=== PATIENT | female | born 1970 | race Caucasian/White ===

== ENCOUNTER → 2018-05-17 14:36 | Outpatient (CLI) | payer OTHER, SELFPAY ==
[2018-05-17 16:01] LABS: Hematocrit 40.8 % (36-46); Hemoglobin 13.9 g/dL (12.0-16.0); Mean Corpuscular Volume 93.9 fL (80-100); Platelet Count 328 X10^3/uL (150-400); Red Blood Cell Count 4.34 X10^6/uL (4.0-5.2); Red Cell Distribution Width 14.3 % (11.6-14.8); White Blood Cell Count 7.8 X10^3/uL (4.5-11.0)
[2018-05-17 16:11] LABS: Alanine Aminotransferase 42 IU/L (9-52); Albumin 4.3 g/dL (3.5-5.0); Albumin Globulin Ratio 1.4 (1.0-2.8); Alkaline Phosphatase 63 U/L (38-126); Aspartate Aminotransferase 40 IU/L (14-36); BUN Creatinine Ratio 8.3 (6-22); Bilirubin Total 0.4 mg/dL (0.2-1.3); Blood Urea Nitrogen 5 mg/dL (7-17); Carbon Dioxide 25 mmol/L (22-32); Chloride 102 mmol/L (98-107); Estimated Glomerular Filt Rate > 60.0 mL/min (>60); Glucose 85 mg/dL (70-100); HEMOLYSIS < 15 (0-50); Potassium 4.1 mmol/L (3.4-5.1); Sodium 137 mmol/L (137-145); Total Protein 7.3 g/dL (6.3-8.2)
[2018-05-17 17:38] LABS: HIV 1 and 2 Antibody NEGATIVE (NEGATIVE); Hep C Virus Ab w/Reflex Quant NEGATIVE s/c (NEGATIVE)
[2018-05-17 17:44] LABS: Neutrophils Absolute Manual 4368 /uL (3000-5900); Total Cells Counted 100
[2018-05-17 17:45] LABS: RBC Morphology Normal Morphology
[2018-05-19 14:41] LABS: RPR Screen Nonreactive (Nonreactive)
== END ==
LOC: LAB 14:37
PROVIDERS: Family Provider Family Medicine
DX: F32.9 Major depressive disorder, single episode, unspecified (principal); R53.83 Other fatigue; R63.5 Abnormal weight gain; Z20.2 Contact with and (suspected) exposure to infections with a predominantly sexual mode of transmission
CPT/HCPCS: 36415; 80053; 85025; 86592; 86703; 86803

== ENCOUNTER → 2018-06-22 13:04 | Outpatient (CLI) | payer OTHER, SELFPAY ==
--- NOTE | 2018-06-22 13:05 | DI.MRI.S_ITS ---
PROCEDURE: MR KNEE LT WO CON INDICATIONS: persistent knee pain TECHNIQUE: Noncontrast sagittal PD fast spin echo and T2 fast spin echo with fat saturation, sagittal 3-D FLASH with fat saturation; coronal T1 spin echo and PD fast spin echo with fat saturation, and axial PD fast spin echo with fat saturation through the knee. COMPARISON: None. FINDINGS: Image quality: Excellent. Menisci: Medial extrusion of the medial meniscus is present. There is moderately displaced radial tearing of the posterior horn medial meniscus at the meniscal root ligament insertion site. Linear high signal intensity obliquely traverses the posterior horn medial meniscus, demonstrating inferior articular surface extension. Lateral meniscus is intact. Cruciate ligaments: The anterior and posterior cruciate ligaments appear intact. Medial structures: The medial collateral ligament appears intact. Visualized portions of the pes anserinus tendons appear normal. No abnormal bursal fluid. Lateral structures: The lateral collateral ligament, long and short heads of the biceps femoris tendon appear intact. The popliteus tendon appears normal. Iliotibial band appears normal. Anterior structures: The quadriceps and patellar tendons appear intact. Patellar alignment is normal. No femoral trochlear dysplasia or ventral trochlear prominence. No edema in the infrapatellar fat pad. Bones and cartilage: No bone marrow contusions or fractures. Mild tricompartmental periarticular osteophyte formation. Moderate to high-grade cartilage loss overlies the medial and lateral femoral trochlea inferiorly. Joint space: There is a moderate knee joint effusion and a trace Campos's cyst. There is a small synovial protrusion along the popliteus, containing multiple intra-articular loose bodies. Normal appearing synovial plicae are incidentally noted. IMPRESSION: 1. Tricompartmental osteoarthritis with associated articular cartilage loss. 2. Medial meniscal extrusion and tearing. 3. Knee joint effusion and intra-articular loose bodies. Dictated by: Skyler Grant M.D. on 06/22/2018 at 15:22 Approved by: Skyler Grant M.D. on 06/22/2018 at 15:26
== END ==
LOC: MRI 13:05
PROVIDERS: PCP Family Medicine; Visit Provider Family Medicine
DX: M25.562 Pain in left knee (principal); S83.242A Other tear of medial meniscus, current injury, left knee, initial encounter; M17.12 Unilateral primary osteoarthritis, left knee; M25.462 Effusion, left knee
CPT/HCPCS: 73721

== ENCOUNTER → 2018-06-25 09:31 | Outpatient (CLI) | payer OTHER, SELFPAY ==
[2018-06-25 10:40] LABS: Hematocrit 40.3 % (36-46); Hemoglobin 13.9 g/dL (12.0-16.0); Mean Corpuscular HGB Conc 34.5 % (30-36); Mean Corpuscular Hemoglobin 31.7 PG (26-34); Mean Corpuscular Volume 91.9 fL (80-100); Platelet Count 315 X10^3/uL (150-400); Red Blood Cell Count 4.38 X10^6/uL (4.0-5.2); Red Cell Distribution Width 14.7 % (11.6-14.8); White Blood Cell Count 5.9 X10^3/uL (4.5-11.0)
[2018-06-25 10:59] LABS: Cholesterol 212 mg/dL (140-199); HDL Cholesterol 81 mg/dL (40-60); LDL Cholesterol Calculated 114 mg/dL (<100); Triglycerides 84 mg/dL (35-150)
[2018-06-25 11:28] LABS: Neutrophils Absolute Manual 3894 /uL (3000-5900); Total Cells Counted 100
[2018-06-25 11:29] LABS: Anisocytosis 1+
[2018-06-25 11:30] LABS: TSH w/ Reflex to FT4 1.04 uIU/mL (0.47-4.68)
== END ==
LOC: LAB 09:32
PROVIDERS: PCP Family Medicine
DX: R63.5 Abnormal weight gain (principal); R88.8 Abnormal findings in other body fluids and substances
CPT/HCPCS: 36415; 80061; 84443; 85025

== ENCOUNTER → 2018-07-09 12:42 | Outpatient (CLI) | payer OTHER, SELFPAY ==
--- NOTE | 2018-07-09 12:43 | DI.MG.S_ITS ---
BILATERAL DIGITAL SCREENING MAMMOGRAM 3D/2D WITH CAD: 07/09/2018 CLINICAL: Routine screening. Comparison is made to exams dated: 09/23/2016 mammogram, 08/10/2014 mammogram, and 10/29/2012 mammogram - [facility]. The tissue of both breasts is heterogeneously dense. This may lower the sensitivity of mammography. Current study was also evaluated with a Computer Aided Detection (CAD) system. No significant masses, calcifications, or other findings are seen in either breast. There has been no significant interval change. IMPRESSION: NEGATIVE There is no mammographic evidence of malignancy. A 1 year screening mammogram is recommended. This exam was interpreted at Station ID: [id number]. NOTE: For mammograms, a report in lay terms will be sent to the patient. Approximately 15% of breast malignancies will not be visualized mammographically. In the management of a palpable breast mass, a negative mammogram must not discourage biopsy of a clinically suspicious lesion. Electronically Signed By: Peewee agosto/quinn:07/09/2018 19:38:41 letter sent: Normal Exam ACR BI-RADS Category 1: Negative 3341F
== END ==
PROVIDERS: PCP Family Medicine; Visit Provider Family Medicine
DX: Z12.31 Encounter for screening mammogram for malignant neoplasm of breast (principal)
CPT/HCPCS: 77063; 77067

== ENCOUNTER → 2019-11-24 08:51 | Outpatient (CLI) | payer OTHER, MEDICAID, SELFPAY ==
[2019-11-24 10:37] LABS: Hematocrit 39.4 % (36-46); Hemoglobin 13.7 g/dL (12.0-16.0); Mean Corpuscular HGB Conc 34.8 % (30-36); Mean Corpuscular Hemoglobin 31.6 PG (26-34); Mean Corpuscular Volume 90.9 fL (80-100); Platelet Count 300 X10^3/uL (150-400); Red Blood Cell Count 4.33 X10^6/uL (4.0-5.2); Red Cell Distribution Width 13.5 % (11.6-14.8); White Blood Cell Count 6.5 X10^3/uL (4.5-11.0)
[2019-11-24 10:50] LABS: Alanine Aminotransferase 17 IU/L (<35); Albumin 4.5 g/dL (3.5-5.0); Albumin Globulin Ratio 1.5 (1.0-2.8); Alkaline Phosphatase 70 U/L (38-126); Aspartate Aminotransferase 24 IU/L (14-36); BUN Creatinine Ratio 19.4 (6-22); Bilirubin Total 0.6 mg/dL (0.2-1.3); Blood Urea Nitrogen 13 mg/dL (7-17); Calcium 9.6 mg/dL (8.4-10.2); Carbon Dioxide 25 mmol/L (22-32); Chloride 102 mmol/L (98-107); Cholesterol 234 mg/dL (140-199); Estimated Glomerular Filt Rate > 60.0 mL/min (>60); Globulin 3.1 g/dL (1.7-4.1); Glucose 96 mg/dL (70-100); HDL Cholesterol 94 mg/dL (40-60); HEMOLYSIS < 15 (0-50); LDL Cholesterol Calculated 114 mg/dL (<100); Potassium 4.4 mmol/L (3.4-5.1); Sodium 137 mmol/L (137-145); Total Protein 7.6 g/dL (6.3-8.2); Triglycerides 131 mg/dL (35-150)
[2019-11-24 11:03] LABS: Neutrophils Absolute Manual 3705 /uL (3000-5900); RBC Morphology Normal Morphology; Total Cells Counted 100
[2019-11-24 11:17] LABS: Thyroid Stimulating Hormone 1.74 uIU/mL (0.47-4.68)
== END ==
PROVIDERS: PCP Family Medicine; Referring Provider Family Medicine; Visit Provider Family Medicine
DX: N95.1 Menopausal and female climacteric states (principal); R63.5 Abnormal weight gain; Z13.0 Encounter for screening for diseases of the blood and blood-forming organs and certain disorders involving the immune mechanism; Z13.1 Encounter for screening for diabetes mellitus; Z13.220 Encounter for screening for lipoid disorders
CPT/HCPCS: 36415; 80053; 80061; 83001; 83002; 84443; 85025

== ENCOUNTER → 2019-12-01 12:05 | Outpatient (CLI) | payer OTHER, MEDICAID, SELFPAY ==
--- NOTE | 2019-12-01 12:17 | DI.MG.S_ITS ---
Patient Name: APARNA REED date: 1970 Sex: F Attending Physician: Jessie Indications: Date: 12/01/2019 12:14 At the request of: RONALD CUNHA Procedure: MM screening mammo BI BILATERAL DIGITAL SCREENING MAMMOGRAM 3D/2D WITH CAD: 12/01/2019 CLINICAL: Routine screening. Comparison is made to exams dated: 07/09/2018 mammogram, 07/06/2017 mammogram, 09/23/2016 mammogram, and 08/10/2014 mammogram - [facility]. There are scattered fibroglandular elements in both breasts. Current study was also evaluated with a Computer Aided Detection (CAD) system. No significant masses, calcifications, or other findings are seen in either breast. There has been no significant interval change. IMPRESSION: NEGATIVE There is no mammographic evidence of malignancy. A 1 year screening mammogram is recommended. This exam was interpreted at Station ID: [id number]. NOTE: For mammograms, a report in lay terms will be sent to the patient. Approximately 15% of breast malignancies will not be visualized mammographically. In the management of a palpable breast mass, a negative mammogram must not discourage biopsy of a clinically suspicious lesion. Electronically Signed By: Raymundo howell/quinn:12/01/2019 12:27:23 letter sent: Normal Exam ACR BI-RADS Category 1: Negative 3341F
== END ==
PROVIDERS: PCP Family Medicine; Referring Provider Family Medicine; Visit Provider Family Medicine
DX: Z12.31 Encounter for screening mammogram for malignant neoplasm of breast (principal)
CPT/HCPCS: 77063; 77067

== ENCOUNTER → 2019-12-23 10:44 | Outpatient (CLI) | payer OTHER, MEDICAID, SELFPAY ==
[2019-12-25 18:19] LABS: COVID19 Sendout Not Detected (Not Detect)
== END ==
PROVIDERS: PCP Family Medicine; Visit Provider Nurse Practitioner
DX: Z11.59 Encounter for screening for other viral diseases (principal)
CPT/HCPCS: 87635

== ENCOUNTER → 2019-12-26 13:03 | Outpatient (CLI) | payer OTHER, MEDICAID, SELFPAY ==
--- NOTE | 2019-12-26 14:42 | PM.TREADMILL ---
Cardiac Stress Test Report Referral & Results Date Patient Seen: 12/26/19 Requesting provider: Gillian Roman Indication: chest pressure Rest ECG: unremarkable Procedure Note: Today following both written and verbal informed consent, the patient was exercised according to a standard David protocol. The patient exercised for a total of 9 minutes 2 second achieving a maximum heart rate of s 162. Patient's maximum systolic blood pressure was 220. This was an estimated 10.1 MET's. there are no ST-T segment changes Normal heart rate and blood pressure response Functional aerobic impairment rates about -30% on the sedentary scale or 130% of average Single PVC an exercise Impression: no ischemic changes. Excellent exercise capacity Please note: Actual ECG tracings can be found in the PACS system.
== END ==
PROVIDERS: PCP Family Medicine; Referring Provider Family Medicine; Visit Provider Family Medicine
DX: R07.89 Other chest pain (principal)
CPT/HCPCS: 93016; 93017; 93018

== ENCOUNTER → 2020-01-18 10:31 | Outpatient (CLI) | payer OTHER, MEDICAID, SELFPAY ==
--- NOTE | 2020-01-18 10:32 | DI.US.S_ITS ---
PROCEDURE: US THYROID INDICATIONS: ENLARGED THYROID TECHNIQUE: Real-time scanning was performed of the thyroid gland, with image documentation. COMPARISON: None. FINDINGS: Right: Thyroid lobe measures 6.1 x 2.0 x 2.2 cm, and is homogeneous in echotexture. Left: Thyroid lobe measures 5.9 x 1.9 x 1.9 cm, and is homogenous in echotexture. Isthmus: 3 mm thick. Nodule number: 1 Location: Left lower pole Size: 0.9 x 0.5 x 0.7 cm. Composition: Predominately cystic Echogenicity: Hypoechoic Shape: wider than tall. Margins: Smooth Echogenic foci: None Total points: 2 ACR TI-RADS category: Not suspicious Nodule number: 2 Location: Left midpole Size: 1.1 x 0.4 x 0.6 cm. Composition: Predominately cystic Echogenicity: Hypoechoic Shape: wider than tall. Margins: Smooth Echogenic foci: None Total points: 2 ACR TI-RADS category: Not suspicious Nodule number: 3 Location: Left upper pole Size: 0.9 x 0.3 x 0.7 cm. Composition: Predominately cystic Echogenicity: Hypoechoic Shape: wider than tall. Margins: Smooth Echogenic foci: None Total points: 2 ACR TI-RADS category: Not suspicious Nodule number: 4 Location: Right inferior pole Size: 0.7 x 0.4 x 0.5 cm. Composition: Solid Echogenicity: Hypoechoic Shape: wider than tall. Margins: Irregular Echogenic foci: None Total points: 4 ACR TI-RADS category: Moderately suspicious IMPRESSION: Multiple thyroid nodules as detailed above, no further follow-up or FNA necessary per TI-RADS consensus criteria below. ACR TI-RADS definitions and recommendations: TI-RADS 1 (benign): 0 points. FNA not needed. TI-RADS 2 (not suspicious): 2 points. FNA not needed. TI-RADS 3 (mildly suspicious): 3 points. * FNA if 2.5 cm or larger, follow up if 1.5 cm or larger (at 1, 3, and 5 years). TI-RADS 4 (moderately suspicious): 4-6 points. * FNA if 1.5 cm or larger, follow up if 1 cm or larger (at 1, 2, 3, and 5 years). TI-RADS 5 (highly suspicious): 7 points or more. * FNA if 1 cm or larger, follow up if 0.5 cm or larger (every year for 5 years). Dictated by: Kennedy Del Castillo M.D. on 01/18/2020 at 11:32 Approved by: Kennedy Del Castillo M.D. on 01/18/2020 at 11:35
== END ==
PROVIDERS: PCP Family Medicine; Referring Provider Family Medicine; Visit Provider Family Medicine
DX: E04.2 Nontoxic multinodular goiter (principal)
CPT/HCPCS: 76536

== ENCOUNTER → 2021-12-25 12:13 | Outpatient (CLI) | payer OTHER, MEDICAID, SELFPAY | PROVIDERS: PCP Family Medicine; Visit Provider Nurse Practitioner Family | DX: R30.0 Dysuria (principal) | CPT/HCPCS: 87086 ==

== ENCOUNTER 2021-12-25 12:32 | Emergency (ER) | payer OTHER, MEDICAID, SELFPAY ==
[2021-12-25 13:06] VITALS: BP 161/94; PULSE 67; RESP 18; TEMP 36.4; O2SAT 95
[2021-12-25 13:40] LABS: Add Manual Diff / Slide Review NO; Basophils Absolute Auto 0 /uL (0-100); Basophils Percent Auto 0.6 % (0-2); Eosinophils Absolute Auto 100 /uL (0-450); Eosinophils Percent Auto 2.1 % (2-4); Hematocrit 40.1 % (36-46); Hemoglobin 13.8 g/dL (12.0-16.0); Lymphocytes Absolute Auto 1700 /uL (1100-4500); Lymphocytes Percent Auto 25.9 % (25-40); Mean Corpuscular HGB Conc 34.4 % (30-36); Mean Corpuscular Hemoglobin 30.5 PG (26-34); Mean Corpuscular Volume 88.7 fL (80-100); Monocytes Absolute Auto 400 /uL (0-900); Monocytes Percent Auto 6.3 % (3-14); Neutrophils Absolute Auto 4300 /uL (1500-7000); Neutrophils Percent Auto 65.1 % (50-75); Platelet Count 284 X10^3/uL (150-400); Red Blood Cell Count 4.52 X10^6/uL (4.0-5.2); Red Cell Distribution Width 15.5 % (11.6-14.8); White Blood Cell Count 6.5 X10^3/uL (4.5-11.0)
[2021-12-25 13:42] LABS: Alanine Aminotransferase 56 IU/L (<35); Albumin 4.6 g/dL (3.5-5.0); Albumin Globulin Ratio 1.2 (1.0-2.8); Alkaline Phosphatase 89 U/L (38-126); Aspartate Aminotransferase 58 IU/L (14-36); BUN Creatinine Ratio 14.1 (6-22); Bilirubin Total 0.7 mg/dL (0.2-1.3); Blood Urea Nitrogen 9 mg/dL (7-17); Calcium 9.4 mg/dL (8.4-10.2); Carbon Dioxide 24 mmol/L (22-32); Chloride 101 mmol/L (98-107); Estimated Glomerular Filt Rate > 60 mL/min (>60); Globulin 3.8 g/dL (1.7-4.1); Glucose 91 mg/dL (70-100); HEMOLYSIS < 15 (0-50); Lipase 64 U/L (23-300); Potassium 4.4 mmol/L (3.4-5.1); Sodium 136 mmol/L (137-145); Total Protein 8.4 g/dL (6.3-8.2)
--- NOTE | 2021-12-25 14:07 | DI.CT.S_ITS ---
PROCEDURE: CT KIDNEY URETER BLADDER (KUB) INDICATIONS: rt flank pain/hematuria TECHNIQUE: Axial sections were acquired from the lung bases to the pubic symphysis. Coronal and sagittal reformats were performed. For radiation dose reduction, the following was used: automated exposure control, adjustment of mA and/or kV according to patient size. COMPARISON: None. FINDINGS: Image quality: Excellent. Lung bases: Unremarkable. Heart: No significant findings. URINARY: Right Kidney: No stones or hydronephrosis. Right Ureter: No hydroureter. Left Kidney: No stones or hydronephrosis. Simple parapelvic cysts are noted. Left Ureter: No hydroureter. Bladder: Normal wall thickness. No stones. ABDOMEN: Liver: Liver is enlarged measuring 20.9 cm with diffuse steatosis. Gallbladder: Unremarkable. Biliary ducts: Unremarkable. Pancreas: Unremarkable. Spleen: Unremarkable. Adrenal Glands: Unremarkable. Stomach and Bowel: Stomach, small bowel loops, and colon are unremarkable. Peritoneum: No abnormal intraperitoneal fluid. No free air. Ventral Wall: No hernia. Abdominal Nodes: No enlarged retroperitoneal or mesenteric lymph nodes. Vessels: Aorta and inferior vena cava are normal in size. PELVIS: Pelvic Organs: Unremarkable. Pelvic Nodes: Unremarkable. Miscellaneous: No inguinal hernias are seen. Bones: Unremarkable. IMPRESSION: No renal, ureteral or bladder calculi. Dictated by: Karoline Barton M.D. on 12/25/2021 at 15:01 Approved by: Karoline Barton M.D. on 12/25/2021 at 15:31
[2021-12-25 14:34] VITALS: BP 193/108; PULSE 82; RESP 24; O2SAT 97
--- NOTE | 2021-12-25 17:21 | ED_ITS ---
HPI - Abdominal Pain <SADIQ Sellers - Last Filed: 12/25/21 20:14> General Chief Complaint: Abdominal Pain Stated Complaint: Severe sharp pain lower RT ABD Time Seen by Provider: 12/25/21 14:06 Source: patient Mode of arrival: Ambulatory History of Present Illness HPI narrative: This is a 51-year-old female who presents to the emergency department complaining of right-sided thoracic pain which she was woken up with last night, endorses feeling bloated and having right-sided flank pain. She denies any f jem but endorses mild nausea. She denies any dysuria, urinary frequency or urgency, denies any chest pain, shortness of breath, difficulty breathing or weakness. States she is had a partial hysterectomy without oophorectomy and this is her only abdominal surgery in the past. She denies any heartburn or epigastric pain. States that she is gained approximately 100 lb over the last 2 years and this has been due to live stress and grief. Related Data Previous Rx's Medication Instructions Recorded epinephrine 0.3 mg/0.3 mL 0.3 mg (0.3 mL) IM ONCE #2 ea 02/25/21 injection, auto-injector sertraline 50 mg tablet 50 mg PO DAILY #90 tabs 08/22/21 methocarbamol 500 mg tablet 250 - 500 mg PO BEDTIME muscle 12/25/21 pain #10 tabs Allergies Allergy/AdvReac Type Severity Reaction Status Date / Time venom-honey bee Allergy Severe ANAPHYLAXIS Verified 12/25/21 12:05 [BEE VENOM (HONEY BEE)] Review of Systems <SADIQ Sellers - Last Filed: 12/25/21 20:14> Review of Systems Narrative: Review of systems is negative for acute abnormalities unless otherwise noted in HPI Patient History <SADIQ Sellers - Last Filed: 12/25/21 20:14> Medical History Thyroid nodule Surgical History History of salpingectomy (~02/13/17) Status post dilation and curettage (12/30/16) Status post laparoscopic supracervical hysterectomy (02/13/17) Social History Smoking Status: Never smoker Smoking Status: Never smoker Exam <SADIQ Sellers - Last Filed: 12/25/21 20:14> Narrative Exam Narrative: Reviewed vitals signs and nursing notes. General: cooperative, comfortable, in no acute distress, well groomed HEENT: symmetrical facial expressions, moist mucous membranes, EOMI Cardiovascular: regular rate and rhythm, no peripheral edema, warm extremities Respiratory: normal effort, able to speak in complete sentences, without wheezing, stridor, or abnormal breath sounds. No retractions or tachypnea. GI: abdomen soft, nontender to palpation, nondistended, without masses, rebound tenderness or exquisite tenderness with exam. MSK: moves all extremities, neurovascularly intact, no weakness, normal tone, patient had tenderness to palpation of the midthoracic region over the right- sided musculature, this was reproducible, presume likely muscle spasm, no CVA tenderness bilaterally Skin: brisk capillary refill, without pallor or erythema Neuro: normal speech and cognition, A&O x3, ambulatory, clear speech Psych: mental status is grossly normal, congruent mood, normal affect, pleasant and cooperative Initial Vital Signs Initial Vital Signs: Vital Signs Temperature 97.5 F L 12/25/21 13:06 Pulse Rate 67 12/25/21 13:06 Respiratory Rate 18 12/25/21 13:06 Blood Pressure 161/94 H 12/25/21 13:06 Pulse Oximetry 95 12/25/21 13:06 Oxygen Delivery Method 12/25/21 13:06 <Jhony Isabel DO - Last Filed: 12/26/21 14:46> Initial Vital Signs Initial Vital Signs: Vital Signs Temperature 97.5 F L 12/25/21 13:06 Pulse Rate 67 12/25/21 13:06 Respiratory Rate 18 12/25/21 13:06 Blood Pressure 161/94 H 12/25/21 13:06 Pulse Oximetry 95 12/25/21 13:06 Oxygen Delivery Method 12/25/21 13:06 Course <SADIQ Sellers - Last Filed: 12/25/21 20:14> Orders Ordered: Discontinued Medications Lactated Ringer's (Lactated Ringers) 1,000 mls @ 1,000 mls/hr IV BOLUS ONE Stop: 12/25/21 18:22 Last Infusion: 12/25/21 19:21 Dose: 0 mls/hr Documented By: Admin: 12/25/21 18:29 Dose: 1,000 mls/hr Documented By: ALAN Ketorolac Tromethamine (Ketorolac 30 Mg/Ml Vial) 15 mg IV NOW ONE Stop: 12/25/21 17:24 Last Admin: 12/25/21 18:29 Dose: 15 mg Documented By: ALAN Ondansetron HCl (Ondansetron 4 Mg Odt) 4 mg SL NOW ONE Stop: 12/25/21 18:12 Last Admin: 12/25/21 18:29 Dose: 4 mg Documented By: ALAN Vital Signs Vital signs: Vital Signs - 8 hr 12/25/21 13:06 12/25/21 14:34 12/25/21 18:43 Temperature 97.5 F L Pulse Rate 67 82 78 Respiratory Rate 18 24 16 Blood Pressure 161/94 H 193/108 H 145/93 H Pulse Oximetry 95 97 98 Oxygen Delivery Method Room Air Room Air Room Air <Jhony Isabel, - Last Filed: 12/26/21 14:46> Orders Ordered: Discontinued Medications Lactated Ringer's (Lactated Ringers) 1,000 mls @ 1,000 mls/hr IV BOLUS ONE Stop: 12/25/21 18:22 Last Infusion: 12/25/21 19:21 Dose: 0 mls/hr Documented By: Admin: 12/25/21 18:29 Dose: 1,000 mls/hr Documented By: ALAN Ketorolac Tromethamine (Ketorolac 30 Mg/Ml Vial) 15 mg IV NOW ONE Stop: 12/25/21 17:24 Last Admin: 12/25/21 18:29 Dose: 15 mg Documented By: ALAN Ondansetron HCl (Ondansetron 4 Mg Odt) 4 mg SL NOW ONE Stop: 12/25/21 18:12 Last Admin: 12/25/21 18:29 Dose: 4 mg Documented By: ALAN Vital Signs Vital signs: Vital Signs - 8 hr 12/25/21 13:06 12/25/21 14:34 12/25/21 18:43 Temperature 97.5 F L Pulse Rate 67 82 78 Respiratory Rate 18 24 16 Blood Pressure 161/94 H 193/108 H 145/93 H Pulse Oximetry 95 97 98 Oxygen Delivery Method Room Air Room Air Room Air MDM - Abdominal Pain <ANTONY SellersP - Last Filed: 12/25/21 20:14> Lab Data Result diagrams: 12/25/21 13:17 12/25/21 13:17 Labs: Lab Results 12/25/21 12/25/21 12/25/21 Range/Units 13:17 13:17 13:17 WBC 6.5 (4.5-11.0) X10^3/uL RBC 4.52 (4.0-5.2) X10^6/uL Hgb 13.8 (12.0-16.0) g/dL Hct 40.1 (36-46) % MCV 88.7 (80-100) fL MCH 30.5 (26-34) PG MCHC 34.4 (30-36) % RDW 15.5 H (11.6-14.8) % Plt Count 284 (150-400) X10^3/uL Neut % (Auto) 65.1 (50-75) % Lymph % (Auto) 25.9 (25-40) % [place] % (Auto) 6.3 (3-14) % Eos % (Auto) 2.1 (2-4) % Baso % (Auto) 0.6 (0-2) % Neut # (Auto) 4300 (3060-3646) /uL Lymph # (Auto) 1700 (0836-9963) /uL [place] # (Auto) 400 (0-900) /uL Eos # (Auto) 100 (0-450) /uL Baso # (Auto) 0 (0-100) /uL Sodium 136 L (137-145) mmol/L Potassium 4.4 (3.4-5.1) mmol/L Chloride 101 (98-107) mmol/L Carbon Dioxide 24 (22-32) mmol/L BUN 9 (7-17) mg/dL Creatinine 0.64 (0.52-1.04) mg/dL Estimated GFR > 60 (>60) mL/min BUN/Creatinine Ratio 14.1 (6-22) Glucose 91 (70-100) mg/dL Calcium 9.4 (8.4-10.2) mg/dL Total Bilirubin 0.7 (0.2-1.3) mg/dL AST 58 H (14-36) IU/L ALT 56 H (<35) IU/L Alkaline Phosphatase 89 (38-126) U/L Total Creatine Kinase (30-135) U/L CK-MB (CK-2) CK-MB (CK-2) Rel Index Troponin I (0.01-0.034) ng/mL C-Reactive Protein (<1.0) mg/dL Total Protein 8.4 H (6.3-8.2) g/dL Albumin 4.6 (3.5-5.0) g/dL Globulin 3.8 (1.7-4.1) g/dL Albumin/Globulin Ratio 1.2 (1.0-2.8) Lipase 64 (23-300) U/L TSH 1.10 (0.47-4.68) uIU/mL 12/25/21 Range/Units 13:17 WBC (4.5-11.0) X10^3/uL RBC (4.0-5.2) X10^6/uL Hgb (12.0-16.0) g/dL Hct (36-46) % MCV (80-100) fL MCH (26-34) PG MCHC (30-36) % RDW (11.6-14.8) % Plt Count (150-400) X10^3/uL Neut % (Auto) (50-75) % Lymph % (Auto) (25-40) % [place] % (Auto) (3-14) % Eos % (Auto) (2-4) % Baso % (Auto) (0-2) % Neut # (Auto) (1872-9105) /uL Lymph # (Auto) (0310-7733) /uL [place] # (Auto) (0-900) /uL Eos # (Auto) (0-450) /uL Baso # (Auto) (0-100) /uL Sodium (137-145) mmol/L Potassium (3.4-5.1) mmol/L Chloride (98-107) mmol/L Carbon Dioxide (22-32) mmol/L BUN (7-17) mg/dL Creatinine (0.52-1.04) mg/dL Estimated GFR (>60) mL/min BUN/Creatinine Ratio (6-22) Glucose (70-100) mg/dL Calcium (8.4-10.2) mg/dL Total Bilirubin (0.2-1.3) mg/dL AST (14-36) IU/L ALT (<35) IU/L Alkaline Phosphatase (38-126) U/L Total Creatine Kinase 43 (30-135) U/L CK-MB (CK-2) TNP CK-MB (CK-2) Rel Index TNP Troponin I < 0.012 (0.01-0.034) ng/mL C-Reactive Protein 1.7 H (<1.0) mg/dL Total Protein (6.3-8.2) g/dL Albumin (3.5-5.0) g/dL Globulin (1.7-4.1) g/dL Albumin/Globulin Ratio (1.0-2.8) Lipase (23-300) U/L TSH (0.47-4.68) uIU/mL Imaging Data CT scan - abdomen/pelvis: Radiologist's Impression: PROCEDURE:? CT KIDNEY URETER BLADDER (KUB) ? INDICATIONS:? rt flank pain/hematuria ? TECHNIQUE:? Axial sections were acquired from the lung bases to the pubic symphysis.? Coronal and sagittal reformats were performed.? For radiation dose reduction, the following was used: ?automated exposure control, adjustment of mA and/or kV according to patient size.? ? COMPARISON:? None. ? FINDINGS:? Image quality:? Excellent.? ? Lung bases:? Unremarkable.? ? Heart:? No significant findings. ? URINARY: Right Kidney: ? No stones or hydronephrosis.? Right Ureter:? No hydroureter.? ? Left Kidney: ? No stones or hydronephrosis.? Simple parapelvic cysts are noted. Left Ureter:? No hydroureter.? ? Bladder:? Normal wall thickness. No stones. ? ? ? ABDOMEN: Liver:? Liver is enlarged measuring 20.9 cm with diffuse steatosis. Gallbladder:? Unremarkable.? ? Biliary ducts:? Unremarkable.? ? Pancreas:? Unremarkable.? ? Spleen:? Unremarkable.? ? Adrenal Glands:? Unremarkable.? ? ? Stomach and Bowel:? Stomach, small bowel loops, and colon are unremarkable.? Peritoneum:? No abnormal intraperitoneal fluid.? No free air.? ? Ventral Wall: ? No hernia.? Abdominal Nodes:? No enlarged retroperitoneal or mesenteric lymph nodes.? Vessels:? Aorta and inferior vena cava are normal in size.? ? PELVIS: Pelvic Organs:? Unremarkable.? ? Pelvic Nodes: Unremarkable. Miscellaneous: No inguinal hernias are seen. ? ? ? Bones:? Unremarkable. ? IMPRESSION:? ? No renal, ureteral or bladder calculi. ? ? ? Dictated by: Karoline Barton M.D. on 12/25/2021 at 15:01 ? ? Approved by: Karoline Barton M.D. on 12/25/2021 at 15:31 ? US - abdomen: Radiologist's Impression: PROCEDURE:? US ABDOMEN LIMITED ? INDICATIONS:? rt abd pain ? TECHNIQUE:? Real-time scanning was performed of the abdominal and retroperitoneal organs, with image documentation.? ? COMPARISON:? None. ? FINDINGS:? ? Liver:? The liver is enlarged and demonstrates increased echogenicity.? No solid masses are identified.? Increased echogenicity prevents complete penetration and visua lization of the liver parenchyma. ? Gallbladder:? The gallbladder is contracted. ? Biliary ducts:? Intrahepatic bile ducts are non-dilated.? Extrahepatic bile duct caliber measures 3.1 mm.? Normal is 6-7 mm or less in diameter, or 10 mm or less post-cholecystectomy.? ? Pancreas:? Not well visualized ? ? IMPRESSION:? 1. Enlarged echogenic liver consistent with hepatic steatosis. 2. No cholelithiasis identified.? The gallbladder is contracted.? Dictated by: Damaso Peña M.D. on 12/25/2021 at 18:15 ? ? Approved by: Damaso Peña M.D. on 12/25/2021 at 18:17 ? MDM Narrative Medical decision making narrative: This is a 51-year-old female presents to the emergency department with right- sided upper thoracic pain which she states came on last night and was sharp in nature. She states that she is had pain like this in the past but not this bad. She endorses that she is gained about 100 lb over the last year or 2 and this is not planned but has stress and grief in her life over the last couple of years. Overall her lab work is grossly unremarkable, she has mild elevation of her AST and ALT at 58 and 56 compared to 24 in quarantine since her last visit in 2019, there is no leukocytosis or anemia, no elevation to her alkaline phosphatase, total bilirubin, or other enzymes. She was found to have hematuria without your nitrates or wbc's, has right-sided CVA tenderness but a CT KUB does not show any obstructive uropathy, nephrolithiasis or other abnormality, gallbladder was unremarkable and liver is enlarged measuring 20.9 cm with diffuse steatosis. Abdomen ultrasound shows enlarged echogenic liver consistent with hepatic steatosis and no cholelithiasis identified, the gallbladder is contracted. Patient was found to have hematuria and hepatic steatosis without any other abnormal findings today. Discussion of results with the patient and encouraged her to follow-up with urology if her hematuria is persistent or if she has any worsening of her symptoms and a consultation to Dr. Canales was placed. I presume that her back pain is likely a muscle spasm but it could be related to gallbladder pain although she did not have any cholelithiasis or cholecystitis today it sounds like her pain occurred last night and may have been referred to her back. I encouraged her to eat a low-fat diet and start with clear liquids, follow up with her primary about her elevated transaminases and hepatic steatosis, she will return to the emergency department for any worsening of this. Patient is appropriate and amenable to discharge home. Vital signs are stable on repeat examination is unremarkable. Patient has been informed of results. Patient has been given strict return to ER precautions for any new or worsening symptoms. No peritoneal signs on abdominal exam. Patient remains p.o. tolerant. Serial abdominal exam without increase in abdominal pain. Given history and exam, low suspicion for acute abdominal process, such as acute cholecystitis, pancreatitis, perforated viscus, atypical appendicitis, colitis, diverticulitis or torsion. Extensive conversation about ER return precautions and need for close follow-up. Patient understands to follow up closely with outpatient providers as instructed. Patient understands plan and agrees to discharge home. All questions and concerns answered at this time. <Jhony Isabel, DO - Last Filed: 12/26/21 14:46> Lab Data Labs: Lab Results 12/25/21 12/25/21 12/25/21 Range/Units 13:17 13:17 13:17 WBC 6.5 (4.5-11.0) X10^3/uL RBC 4.52 (4.0-5.2) X10^6/uL Hgb 13.8 (12.0-16.0) g/dL Hct 40.1 (36-46) % MCV 88.7 (80-100) fL MCH 30.5 (26-34) PG MCHC 34.4 (30-36) % RDW 15.5 H (11.6-14.8) % Plt Count 284 (150-400) X10^3/uL Neut % (Auto) 65.1 (50-75) % Lymph % (Auto) 25.9 (25-40) % [place] % (Auto) 6.3 (3-14) % Eos % (Auto) 2.1 (2-4) % Baso % (Auto) 0.6 (0-2) % Neut # (Auto) 4300 (7219-3089) /uL Lymph # (Auto) 1700 (0422-3456) /uL [place] # (Auto) 400 (0-900) /uL Eos # (Auto) 100 (0-450) /uL Baso # (Auto) 0 (0-100) /uL Sodium 136 L (137-145) mmol/L Potassium 4.4 (3.4-5.1) mmol/L Chloride 101 (98-107) mmol/L Carbon Dioxide 24 (22-32) mmol/L BUN 9 (7-17) mg/dL Creatinine 0.64 (0.52-1.04) mg/dL Estimated GFR > 60 (>60) mL/min BUN/Creatinine Ratio 14.1 (6-22) Glucose 91 (70-100) mg/dL Calcium 9.4 (8.4-10.2) mg/dL Total Bilirubin 0.7 (0.2-1.3) mg/dL AST 58 H (14-36) IU/L ALT 56 H (<35) IU/L Alkaline Phosphatase 89 (38-126) U/L Total Creatine Kinase (30-135) U/L CK-MB (CK-2) CK-MB (CK-2) Rel Index Troponin I (0.01-0.034) ng/mL C-Reactive Protein (<1.0) mg/dL Total Protein 8.4 H (6.3-8.2) g/dL Albumin 4.6 (3.5-5.0) g/dL Globulin 3.8 (1.7-4.1) g/dL Albumin/Globulin Ratio 1.2 (1.0-2.8) Lipase 64 (23-300) U/L TSH 1.10 (0.47-4.68) uIU/mL 12/25/21 Range/Units 13:17 WBC (4.5-11.0) X10^3/uL RBC (4.0-5.2) X10^6/uL Hgb (12.0-16.0) g/dL Hct (36-46) % MCV (80-100) fL MCH (26-34) PG MCHC (30-36) % RDW (11.6-14.8) % Plt Count (150-400) X10^3/uL Neut % (Auto) (50-75) % Lymph % (Auto) (25-40) % [place] % (Auto) (3-14) % Eos % (Auto) (2-4) % Baso % (Auto) (0-2) % Neut # (Auto) (0887-1380) /uL Lymph # (Auto) (2406-4516) /uL [place] # (Auto) (0-900) /uL Eos # (Auto) (0-450) /uL Baso # (Auto) (0-100) /uL Sodium (137-145) mmol/L Potassium (3.4-5.1) mmol/L Chloride (98-107) mmol/L Carbon Dioxide (22-32) mmol/L BUN (7-17) mg/dL Creatinine (0.52-1.04) mg/dL Estimated GFR (>60) mL/min BUN/Creatinine Ratio (6-22) Glucose (70-100) mg/dL Calcium (8.4-10.2) mg/dL Total Bilirubin (0.2-1.3) mg/dL AST (14-36) IU/L ALT (<35) IU/L Alkaline Phosphatase (38-126) U/L Total Creatine Kinase 43 (30-135) U/L CK-MB (CK-2) TNP CK-MB (CK-2) Rel Index TNP Troponin I < 0.012 (0.01-0.034) ng/mL C-Reactive Protein 1.7 H (<1.0) mg/dL Total Protein (6.3-8.2) g/dL Albumin (3.5-5.0) g/dL Globulin (1.7-4.1) g/dL Albumin/Globulin Ratio (1.0-2.8) Lipase (23-300) U/L TSH (0.47-4.68) uIU/mL Discharge Plan Departure Patient Disposition: Home Clinical Impression: Hepatic steatosis, Gallbladder pain Hematuria Qualifiers: Hematuria type: unspecified type Qualified Code(s): R31.9 - Hematuria, unspecified Instructions: Eating a Diet Low in Saturated Fat, Trans Fat, and Cholesterol, Muscle Strain, DI for Gallstones Activity Restrictions/Additional Instructions: *You have been diagnosed with hepatic steatosis/fatty liver and this is likely due to weight gain. It measures 20.9 cm which enlarged however there is no obstructions or acute concerns for intervention. It sounds like your pain came on sharp and spasm like, this could be a muscle spasm and you can try taking muscle relaxer before bed to see if this helps. Your AST and ALT were mildly elevated today at 58 and 56, previously 2020 they were 24 and 17. No other liver enzymes were elevated and your lipase is normal, your urine showed a trace of blood but no bacteria or white blood cells. This was sent for culture so we will call you if it grows something in the lab. Please follow-up with Dr. Roman about your pain and symptoms to see if they resolve with a diet change. Please limit fat in your diet for the next couple of days, eat foods that are easy to digest, avoid dairy and drink plenty of clear liquids to stay hydrated. Please return if you develop a fever, vomiting, or any worsening of your pain. I will put in a consultation for Urology for the blood in your urine, they will call you for an appointment or you can call them if you have persistent blood in your urine and it is noticeable. *What to do: Take ibuprofen 600 mg every 6 hours as needed for pain with water and something to coat your stomach. You may take Tylenol in addition to this for pain, will be the safest moving forward. *Please continue to take your regular medications as directed. [x ] New medication prescriptions sent to your pharmacy: [ [facility]] [ ] New medication written as a paper prescription [ ] No new medications given *Please follow up with your primary care provider in 2-3 days, call for an appointment. Let them know you were seen in the Emergency Department and that we asked that you be seen for follow-up. We will electronically transmit a record of today's note if your PCP is in our system *If you do not have a primary care provider please contact [phone] to establish care with one of the [facility] primary care providers. *Return to Emergency Department if you should have any new, worsening, or concerning symptoms, such as [fever greater than 101F, chills, worsening pain, persistent vomiting or other bothersome symptoms]. Prescriptions: New methocarbamol 500 mg tablet 250 - 500 mg PO BEDTIME Qty: 10 0RF No Action epinephrine 0.3 mg/0.3 mL auto-injector 0.3 mg IM ONCE Qty: 2 2RF sertraline 50 mg tablet 50 mg PO DAILY Qty: 90 2RF Referrals: Gillian Roman MD [Primary Care Provider] - Joshua Canales MD [Physician] - Visit Report Forms: Patient Portal/API <Jhony Isabel DO - Last Filed: 12/26/21 14:46> Cosign ED Attending Cosalhajiature Attestation: I was immediately available in the department for consultation. This documentation has been reviewed and I agree with assessment and plan. Supervised by Jhony Isabel DO
--- NOTE | 2021-12-25 17:22 | DI.US.S_ITS ---
PROCEDURE: US ABDOMEN LIMITED INDICATIONS: rt abd pain TECHNIQUE: Real-time scanning was performed of the abdominal and retroperitoneal organs, with image documentation. COMPARISON: None. FINDINGS: Liver: The liver is enlarged and demonstrates increased echogenicity. No solid masses are identified. Increased echogenicity prevents complete penetration and visualization of the liver parenchyma. Gallbladder: The gallbladder is contracted. Biliary ducts: Intrahepatic bile ducts are non-dilated. Extrahepatic bile duct caliber measures 3.1 mm. Normal is 6-7 mm or less in diameter, or 10 mm or less post-cholecystectomy. Pancreas: Not well visualized IMPRESSION: 1. Enlarged echogenic liver consistent with hepatic steatosis. 2. No cholelithiasis identified. The gallbladder is contracted. Dictated by: Damaso Peña M.D. on 12/25/2021 at 18:15 Approved by: Damaso Peña M.D. on 12/25/2021 at 18:17
[2021-12-25] MEDS: LACTATED RINGERS 1,000 ML 1000 ML IV (18:29)
[2021-12-25] MEDS: KETOROLAC 30 MG/ML VIAL 15 MG IV (18:29)
[2021-12-25] MEDS: ONDANSETRON 4 MG ODT SL (18:29)
[2021-12-25 18:43] VITALS: BP 145/93; PULSE 78; RESP 16; O2SAT 98
[2021-12-25 21:04] LABS: Creatine Kinase 43 U/L (30-135)
[2021-12-25 21:17] LABS: Troponin I < 0.012 ng/mL (0.01-0.034)
[2021-12-25 22:02] LABS: C-Reactive Protein Quant 1.7 mg/dL (<1.0)
== END 2021-12-25 19:23 | disposition home or self-care (01) ==
PROVIDERS: Emergency Medicine; Emergency Provider Nurse Practitioner Critical Care Medicine; PCP Family Medicine
DX: K82.9 Disease of gallbladder, unspecified (principal); R31.9 Hematuria, unspecified; K76.0 Fatty (change of) liver, not elsewhere classified; M54.6 Pain in thoracic spine; R10.31 Right lower quadrant pain; R30.0 Dysuria
CPT/HCPCS: 36415; 74176; 76705; 80053; 81002; 82550; 83690; 84443; 84484; 85025; 86140; 87086; 93005; 96361; 96374; 99284; J1885

== ENCOUNTER → 2022-01-04 10:33 | Outpatient (CLI) | payer OTHER, MEDICAID, SELFPAY ==
--- NOTE | 2022-01-04 10:34 | DI.MG.S_ITS ---
BILATERAL DIGITAL SCREENING MAMMOGRAM 3D/2D WITH CAD: 01/04/2022 CLINICAL: Routine screening. Comparison is made to exams dated: 12/01/2019 mammogram, 07/09/2018 mammogram, and 09/23/2016 mammogram - [facility]. There are scattered areas of fibroglandular density in both breasts (category b / 25%-50% glandular tissue). Current study was also evaluated with a Computer Aided Detection (CAD) system. No significant masses, calcifications, or other findings are seen in either breast. There has been no significant interval change. IMPRESSION: NEGATIVE There is no mammographic evidence of malignancy. A 1 year screening mammogram is recommended. Based on the Tyrer Cuzick model (a risk assessment model) the patient's lifetime risk is 9.7% and her 10 year risk is 2.5%. According to the ACR, ACS, and NCCN guidelines, an annual breast MRI exam along with mammogram is recommended if the patient's lifetime risk is 20% or greater. This exam was interpreted at Station ID: [id number]. NOTE: For mammograms, a report in lay terms will be sent to the patient. Approximately 15% of breast malignancies will not be visualized mammographically. In the management of a palpable breast mass, a negative mammogram must not discourage biopsy of a clinically suspicious lesion. Electronically Signed By: Damaso moralez/quinn:01/06/2022 08:55:38 letter sent: Normal Exam ACR BI-RADS Category 1: Negative [id number]
== END ==
PROVIDERS: PCP Family Medicine; Referring Provider Family Medicine; Visit Provider Family Medicine
DX: Z12.31 Encounter for screening mammogram for malignant neoplasm of breast (principal)
CPT/HCPCS: 77063; 77067

== ENCOUNTER → 2022-01-06 15:38 | Outpatient (CLI) | payer OTHER, MEDICAID, SELFPAY ==
--- NOTE | 2022-01-06 | DI.US.S_ITS ---
PROCEDURE: US THYROID INDICATIONS: FOLLOW UP THYROID NODULE TECHNIQUE: Real-time scanning was performed of the thyroid gland, with image documentation. COMPARISON: [facility], US, US THYROID, 01/18/2020, 10:43. FINDINGS: The right thyroid measures 6.1 x 2.0 by 1.9 cm. The left thyroid measures 5.7 x 1.7 x 1.6 cm. The isthmus is 3.2 mm. Numerous subcentimeter nodules are seen in both thyroid lobes, for which dedicated follow-up imaging is not necessary. Nodules of note are as follows. Nodule 1. Left inferior region measuring 8 x 4 x 8 mm, previously 9 x 5 x 7 mm. It is solid, hypoechoic with punctate echogenic foci. TR-5. Follow-up is recommended. Nodule 2. Left mid region measuring 11 x 6 x 6 mm, similar to prior. It is solid and hypoechoic. TR-4. Follow-up is recommended. IMPRESSION: Thyroid nodules as above, stable. Recommendations as above. Dictated by: Pawan Linn M.D. on 01/06/2022 at 17:19 Approved by: Pawan Linn M.D. on 01/06/2022 at 17:24
== END ==
PROVIDERS: PCP Family Medicine; Referring Provider Family Medicine; Visit Provider Family Medicine
DX: E04.2 Nontoxic multinodular goiter (principal)
CPT/HCPCS: 76536

== ENCOUNTER → 2022-07-30 12:26 | Outpatient (CLI) | payer OTHER, MEDICAID, SELFPAY ==
[2022-07-30 13:51] LABS: Alanine Aminotransferase 65 IU/L (<35); Albumin 4.2 g/dL (3.5-5.0); Albumin Globulin Ratio 1.4 (1.0-2.8); Alkaline Phosphatase 91 U/L (38-126); Aspartate Aminotransferase 122 IU/L (14-36); Bilirubin Total 0.9 mg/dL (0.2-1.3); Blood Urea Nitrogen 7 mg/dL (7-17); Calcium 8.7 mg/dL (8.4-10.2); Carbon Dioxide 25 mmol/L (22-32); Chloride 104 mmol/L (98-107); Cholesterol 248 mg/dL (140-199); Estimated Glomerular Filt Rate > 60 mL/min (>60); Globulin 3.1 g/dL (1.7-4.1); Glucose 97 mg/dL (70-100); HEMOLYSIS < 15 (0-50); Potassium 4.1 mmol/L (3.4-5.1); Sodium 137 mmol/L (137-145); Total Protein 7.3 g/dL (6.3-8.2); Triglycerides 104 mg/dL (35-150)
[2022-07-30 14:00] LABS: HDL Cholesterol 125 mg/dL (40-60); LDL Cholesterol Calculated 102 mg/dL (<100)
[2022-07-30 14:22] LABS: TSH w/ Reflex to FT4 0.67 uIU/mL (0.47-4.68)
[2022-07-30 15:18] LABS: Creatinine Urine Random 292.6 mg/dL
[2022-07-30 15:24] LABS: Microalbumi Creatinin Ratio Ur 18.1 ug/mg CR (<30); Microalbumin Urine Random 5.3 mg/dL (0-1.6)
[2022-07-31 15:51] LABS: Labcorp Hemoglobin (Hb) A1c 5.3 % (4.8-5.6)
== END ==
PROVIDERS: PCP Family Medicine; Referring Provider Family Medicine; Visit Provider Family Medicine
DX: E04.1 Nontoxic single thyroid nodule (principal); F32.9 Major depressive disorder, single episode, unspecified; I10 Essential (primary) hypertension; N92.0 Excessive and frequent menstruation with regular cycle
CPT/HCPCS: 36415; 80053; 80061; 82043; 82570; 83036; 84443

== ENCOUNTER → 2023-09-17 11:40 | Outpatient (CLI) | payer OTHER, SELFPAY ==
--- NOTE | 2023-09-17 11:45 | DI.MG.S_ITS ---
BILATERAL DIGITAL DIAGNOSTIC MAMMOGRAM 3D/2D: 09/17/2023 CLINICAL: Right breast lump. Left breast pain. Comparison is made to exams dated: 01/04/2022 mammogram, 12/01/2019 mammogram, and 07/09/2018 mammogram - [facility]. There are scattered areas of fibroglandular density in both breasts (category b / 25%-50% glandular tissue). No significant masses, calcifications, or other findings are seen in either breast. IMPRESSION: INCOMPLETE: NEEDS ADDITIONAL IMAGING EVALUATION There is no abnormality seen in the right breast to correspond with the area of clinical concern, however, clinical correlation and clinical followup are recommended. Patient was unable to feel and locate this previously palpable finding today. There is no abnormality seen in the left breast to correspond with the diffuse pain, however, clinical correlation and clinical followup are recommended. There is no abnormality seen in the left breast to correspond with the non-bloody discharge from the nipple, however, ultrasound is recommended. Based on the Tyrer Cuzick model (a risk assessment model) the patient's lifetime risk is 9.6% and her 10 year risk is 2.6%. According to the ACR, ACS, and NCCN guidelines, an annual breast MRI exam along with mammogram is recommended if the patient's lifetime risk is 20% or greater. This exam was interpreted at Station ID: [id number]. NOTE: For mammograms, a report in lay terms will be sent to the patient. Approximately 15% of breast malignancies will not be visualized mammographically. In the management of a palpable breast mass, a negative mammogram must not discourage biopsy of a clinically suspicious lesion. Electronically Signed By: Pawan Linn M.D. lc/:09/17/2023 12:52:45 ACR BI-RADS Category 0: Incomplete 3340F
--- NOTE | 2023-09-17 11:45 | DI.US.S_ITS ---
LIMITED ULTRASOUND OF LEFT BREAST: 09/17/2023 CLINICAL: Nipple discharge, left breast, not bloody. Comparison is made to exams dated: 09/17/2023 mammogram, 01/04/2022 mammogram, 12/01/2019 mammogram, 07/09/2018 mammogram, 07/08/2017 ultrasound, and 07/06/2017 mammogram - [facility]. Real-time ultrasound of the left breast retroareolar was performed. Mckinley scale images of the real-time examination were reviewed. No significant abnormalities were seen sonographically in the left breast. IMPRESSION: NEGATIVE There is no sonographic evidence of malignancy. There is no abnormality seen in the left breast to correspond with the non-bloody discharge from the nipple in the sub-areolar depth, however, clinical correlation and clinical followup are recommended. Return to annual mammogram screening schedule is recommended. Patient was advised to return to repeat imaging if symptoms worsen (more focal palpable finding on either side, more bloody discharge in her left breast) This exam was interpreted at Station ID: [id number]. Electronically Signed By: Pawan Linn M.D. lc/:09/17/2023 12:54:56 letter sent: Clinical Evaluation Ultrasound BI-RADS: 1 Negative
[2023-09-17 13:50] LABS: Alanine Aminotransferase 14 IU/L (<35); Albumin 4.4 g/dL (3.5-5.0); Albumin Globulin Ratio 1.5 (1.0-2.8); Alkaline Phosphatase 57 U/L (38-126); Aspartate Aminotransferase 22 IU/L (14-36); BUN Creatinine Ratio 22.2 (6-22); Bilirubin Total 0.5 mg/dL (0.2-1.3); Blood Urea Nitrogen 14 mg/dL (7-17); Calcium 9.1 mg/dL (8.4-10.2); Carbon Dioxide 29 mmol/L (22-32); Chloride 107 mmol/L (98-107); Estimated Glomerular Filt Rate > 60 mL/min (>60); Globulin 2.9 g/dL (1.7-4.1); Glucose 86 mg/dL (70-100); HEMOLYSIS < 15 (0-50); Potassium 5.3 mmol/L (3.4-5.1); Sodium 140 mmol/L (137-145); Total Protein 7.3 g/dL (6.3-8.2)
== END ==
PROVIDERS: PCP Family Medicine; Referring Provider Family Medicine; Visit Provider Family Medicine
DX: N63.10 Unspecified lump in the right breast, unspecified quadrant (principal); R92.8 Other abnormal and inconclusive findings on diagnostic imaging of breast; N64.4 Mastodynia; N64.52 Nipple discharge; R74.8 Abnormal levels of other serum enzymes
CPT/HCPCS: 36415; 76642; 77066; 80053; G0279

== ENCOUNTER → 2023-11-17 14:57 | Outpatient (CLI) | payer OTHER, SELFPAY ==
--- NOTE | 2023-11-17 14:58 | DI.RAD.S_ITS ---
PROCEDURE: XR FOOT RT MIN 3V INDICATIONS: pain TECHNIQUE: 3 views of the foot were acquired. COMPARISON: None. FINDINGS: Bones: No fractures or dislocations. No suspicious bony lesions. Soft tissues: No tibiotalar joint effusion. Achilles tendon appears normal. IMPRESSION: No acute bony abnormality. Dictated by: Tor Saldivar M.D. on 11/18/2023 at 6:02 Approved by: Tor Saldivar M.D. on 11/18/2023 at 6:02
--- NOTE | 2023-11-17 14:58 | DI.RAD.S_ITS ---
PROCEDURE: XR FOOT LT MIN 3V INDICATIONS: pain TECHNIQUE: 3 views of the foot were acquired. COMPARISON: None. FINDINGS: Bones: No fractures or dislocations. No suspicious bony lesions. Calcaneal insertion spurring noted at the posterior calcaneus. Soft tissues: No tibiotalar joint effusion. Achilles tendon appears normal. IMPRESSION: No acute bony abnormality. Calcaneal insertion spurring. Dictated by: Tor Saldivar M.D. on 11/18/2023 at 6:01 Approved by: Tor Saldivar M.D. on 11/18/2023 at 6:02
== END ==
PROVIDERS: PCP Family Medicine; Referring Provider Family Medicine; Visit Provider Family Medicine
DX: M79.671 Pain in right foot (principal); M79.672 Pain in left foot; M77.32 Calcaneal spur, left foot
CPT/HCPCS: 73630